=== PATIENT | male | born 1945 | race Caucasian/White ===

== ENCOUNTER 2017-04-05 08:42 | Day surgery (SDC) | payer MEDICARE, BC ==
[2017-04-05] VITALS (17 sets, daily range): BP systolic 102–138; BP diastolic 69–100; PULSE 61–80; TEMP 98
[~2017-04-05] VITALS: Ht 180.3 cm; Wt 90.9 kg
[~2017-04-05 08:42] MED LIST: CENTRUM SILVER1 TA2 PO; FE-TABS325 MG PO; FLOVENT0.11 MG/AC IH; FOLIC ACID 40400 MCG PO; PROVENTIL0.09 MG/A1 IH; THEOPHYLLINE400 MG PO; vitamin c PO
[2017-04-05] MEDS ORDERED: ELIQUIS 5MG PO (08:53)
[2017-04-05] MEDS ORDERED: CARDIZEM CD 24240 MG PO (08:53)
[2017-04-05] MEDS ORDERED: TAMBOCOR150 MG PO (08:53)
[2017-04-05 09:39] LABS: HEMATOCRIT 41.2 % (42.0-52.0); HEMOGLOBIN 13.8 g/dl (13.5-18.0); MEAN CELL VOLUME 95 fl (80.0-100.0); MEAN CORPUSCULAR HEMOGLOBIN 32 pg (27.0-31.0); MEAN CORPUSCULAR HGB CONC 34 g/dl (33.0-37.0); MEAN PLATELET VOLUME 10.6 fl (7.4-10.4); PLATELET COUNT 221 K/mm3 (130-400); RED BLOOD COUNT 4.35 M/mm3 (4.20-5.60); REDCELL DISTRIBUTION WIDTH-CV 13.6 % (11.5-14.5); WHITE BLOOD COUNT 5.3 K/mm3 (4.8-10.8)
[2017-04-05 09:50] LABS: CALCIUM 9.5 mg/dL (8.4-10.2); CREATININE, serum 1.11 mg/dL (0.66-1.25); INR 1.3 (0.8-3.0); POTASSIUM 3.8 mmol/L (3.4-5.0); PROTHROMBIN TIME 14.5 SECONDS (9.7-12.8)
== END 2017-04-05 12:09 | disposition home or self-care (01) ==
LOC: COL.CAR 08:42
PROVIDERS: Internal Medicine Cardiovascular Disease
DX: I48.0 Paroxysmal atrial fibrillation (principal); I08.3 Combined rheumatic disorders of mitral, aortic and tricuspid valves; G47.33 Obstructive sleep apnea (adult) (pediatric); J45.909 Unspecified asthma, uncomplicated
CPT/HCPCS: J2250; J3010